=== PATIENT | female | born 1985 | race Caucasian/White ===

== ENCOUNTER 2019-08-02 12:26 | Emergency (ER) | payer MEDICAID ==
[~2019-08-02] VITALS: Ht 165.1 cm; Wt 110.2 kg
[2019-08-02 12:37] VITALS: Ht 165.1 cm; Wt 110.2 kg
[2019-08-02 12:57] LABS: microscopic required? YES; urine erythrocyte NEGATIVE (NEGATIVE)
[2019-08-02 14:28] VITALS: BP 136/61
== END 2019-08-02 14:28 | disposition home or self-care (01) ==
LOC: ED 12:26
DX: N39.0 Urinary tract infection, site not specified (principal); Z98.890 Other specified postprocedural states
CPT/HCPCS: J0696; J1885